=== PATIENT | male | born 1950 | race Caucasian/White ===

== ENCOUNTER 2016-10-15 16:14 | Inpatient (IN) ==
--- NOTE | 2016-10-15 16:21 | Emergency Department Note ---
Disposition Clinical Impression: Withdrawal complaint, Homicidal ideation Disposition: Admitted As Inpatient Condition: Fair Forms: ED Satisfaction Letter Time of Disposition: 17:24 Anxiety HPI - General Chief Complaint: ED Psychiatric Symptoms Stated Complaint: withdrawal Time Seen by Provider: 10/15/16 16:16 Source: patient, EMS Mode of arrival: EMS Limitations: no limitations Nursing Notes Reviewed: Yes Vital Signs Reviewed: Yes - History of Present Illness HPI Narrative: Patient sent from the [facility] for medical detox. He states he takes 25 tablets of 800 mg Neurontin daily for years. Last dose was yesterday. He takes this for anxiety and seizures. Last seizure was approximately 10 years ago. He also states he is very frustrated with life, especially because his is dying of cancer. He has experienced homicidal thoughts but not at the time of my exam. He states he is under a lot of stress and he is experiencing a lot of anxiety MD complaint: anxiety - Related Data Home Medications: Home Medications Medication Instructions Recorded Confirmed ARIPiprazole [Abilify] 5 mg PO HS 10/15/16 10/15/16 Albuterol Neb [Proventil Neb] 2.5 mg IH QID PRN 10/15/16 10/15/16 Albuterol Sulfate [Albuterol 2 puff IH QID PRN 10/15/16 10/15/16 Inhaler] Aspirin Enteric Coated [Aspirin EC] 81 mg PO DAILY 10/15/16 10/15/16 Atorvastatin [Lipitor] 40 mg PO HS 10/15/16 10/15/16 Azithromycin [Azithromycin 6-Tab 250 mg PO PER PKG DI 10/15/16 10/15/16 Pack] Baclofen [Lioresal] 5 mg PO TID PRN 10/15/16 10/15/16 Budesonide/Formoterol 160/4.5 2 puff IH BIDR 10/15/16 10/15/16 [Symbicort 160/4.5] Buprenorphine HCl/Naloxone HCl 1 each SL AD 10/15/16 10/15/16 [Suboxone 8 mg-2 mg Sl Film] Bupropion HCl [Wellbutrin Xl] 300 mg PO QAM 10/15/16 10/15/16 Clopidogrel [Plavix] 75 mg PO DAILY 10/15/16 10/15/16 Dicyclomine [Bentyl] 10 mg PO TID 10/15/16 10/15/16 Diphenoxylate/Atropine [Lomotil 2 each PO TID PRN 10/15/16 10/15/16 2.5 mg/0.025 mg] Gabapentin [Neurontin] 1,200 mg PO TID 10/15/16 10/15/16 Hydrocortisone 1% CREAM [Cortaid] 1 appl TP BID 10/15/16 10/15/16 Ibuprofen [Motrin] 600 mg PO Q8HR PRN 10/15/16 10/15/16 Nicotine Polacrilex [Nicotine Gum] 4 mg BC Q1H PRN 10/15/16 10/15/16 Ondansetron [Zofran] 8 mg PO BID PRN 10/15/16 10/15/16 Paroxetine [Paxil] 60 mg PO DAILY 10/15/16 10/15/16 Quetiapine Fumarate [SEROquel] 25 mg PO TID PRN 10/15/16 10/15/16 Quetiapine Fumarate [SEROquel] 450 mg PO HS 10/15/16 10/15/16 Saliva Substitute Combo No.3 1 spray MM TID 10/15/16 10/15/16 [Aquoral] Tiotropium [Spiriva] 18 mcg IH DAILY 10/15/16 10/15/16 Trazodone HCl 100 mg PO 10/15/16 10/15/16 cloNIDine HCl [CloNIDine HCl] 0.1 mg PO TID 10/15/16 10/15/16 hydrOXYzine pamoate [HydrOXYzine 25 mg PO QID PRN 10/15/16 10/15/16 Pamoate] Allergies/Adverse Reactions: Allergies Allergy/AdvReac Type Severity Reaction Status Date / Time diazepam [From Valium] Allergy Hives Verified 10/15/16 16:17 morphine Allergy Hives Verified 10/15/16 16:17 propoxyphene [From Darvon] Allergy Hives Verified 10/15/16 16:17 tramadol Allergy Hives Verified 10/15/16 16:17 All systems ED: reviewed and negative except as stated. Constitutional: Reports: as per HPI Eyes: Reports: as per HPI ENT ED: Reports: as per HPI Cardiovascular: Reports: as per HPI Respiratory: Reports: as per HPI Gastrointestinal: Reports: as per HPI Genitourinary: Reports: as per HPI Musculoskeletal: Reports: as per HPI Integumentary: Reports: as per HPI Neurological: Reports: as per HPI Psychiatric: Reports: anxiety, depression, homicidal thoughts Endocrine: Reports: as per HPI Hematological/Lymphatic: Reports: as per HPI Allergic/Immunologic: Reports: as per HPI Past Medical History - Past Medical History Source: patient Medical history: Reports: COPD, hepatitis - Social History Smoking Status: Current every day smoker Alcohol use: Reports: none Drug use: Reports: none Physical Exam - General Limitations: no limitations General appearance: alert - Head Head exam: atraumatic - Eye Eye exam: Present: normal appearance, PERRL - ENT ENT exam: normal exam - Neck Neck exam: Present: normal inspection, full ROM - Chest Chest inspection: Present: normal inspection, symmetric chest wall rise - Respiratory Respiratory exam: Present: other (diffuse expiratory rhonchi) - Cardiovascular Cardiovascular exam: Present: normal rhythm, tachycardia, normal heart sounds - Rectal Exam Rectal exam: Present: deferred - Extremities Exam Extremities exam: Present: normal inspection - Neurological Exam Neurological exam: Present: alert, oriented X3, CN II-XII intact - Psychiatric Psychiatric exam: Present: normal affect, normal mood, flat affect - Skin Skin exam: Present: warm, dry, erythema Course Course Narrative: [facility]. I did discuss this case with the [facility]ison Control [facility] who recommended conservative management and benzodiazepines if seizures occur. Patient does want to detox from these medications. He appears in no acute distress. I did [facility] the [facility] the [facility]. - Consultations Consultation #1: call placed to poison control center at 16:19 Vital Signs Temperature 98.0 F 10/15/16 16:17 Pulse Rate 118 10/15/16 16:17 Respiratory Rate 15 10/15/16 16:17 Blood Pressure 134/92 10/15/16 16:17 O2 Sat by Pulse Oximetry 94 10/15/16 16:17 Temperature 98.0 F 10/15/16 16:17 Pulse Rate 116 10/15/16 16:41 Respiratory Rate 15 10/15/16 16:41 Blood Pressure 127/93 10/15/16 16:41 O2 Sat by Pulse Oximetry 93 10/15/16 16:41 Oxygen Delivery Oxygen Delivery Room Air Anxiety - Medical Records Medical records reviewed: Yes I reviewed the patient's medical records. CBC, BMP, UA from [place] dated today - Lab Data Lab Results 10/15/16 Range/Units 16:30 Urine Opiates Screen Negative (Huqvgk=371) ng/mL Ur Barbiturates Screen Negative (Grvofk=683) ng/mL Ur Phencyclidine Scrn Negative (Cutoff=25) ng/mL Ur Amphetamines Screen Negative (Sgnlvp=2210) ng/mL U Benzodiazepines Scrn Negative (Frmrjf=868) ng/mL Urine Cocaine Screen Negative (Cutoff= 300) ng/mL U Marijuana (THC) Screen Negative (Cutoff = 50) ng/mL - EKG Data EKG attestation: Yes I reviewed and interpreted this EKG. EKG results narrative: Sinus tach 112 bpm MN interval 134 QRS 109 QT/QTC 309/375. ST segment depression in the inferior and lateral leads
[2016-10-15 16:49] LABS: Amphetamine Screen,Urine Negative ng/mL (Cutoff=1000); Barbiturate Screen,Urine Negative ng/mL (Cutoff=200); Benzodiazepines Screen,Urine Negative ng/mL (Cutoff=200); Cannabinoid Screen,Urine Negative ng/mL (Cutoff = 50); Cocaine Screen,Urine Negative ng/mL (Cutoff= 300); Opiate Screen,Urine Negative ng/mL (Cutoff=300); Phencyclidine Screen,Urine Negative ng/mL (Cutoff=25)
[2016-10-15] MEDS ORDERED: *HR* LORazepam 2 MG/ML VIAL IVP ONE ×2 (16:49→18:48)
[2016-10-15 18:14] LABS: Magnesium 2.3 mg/dL (1.6-2.6)
[2016-10-15 18:17] LABS: Ethanol < 10 mg/dL (0-10); Salicylate < 5.0 mg/dL (15-30)
[2016-10-15] MEDS ORDERED: Baclofen 10 MG TABLET PO PRN (19:33)
[2016-10-15] MEDS ORDERED: NON-FORMULARY MEDICATION 1 EACH EACH (Ondansetron [Zofran] 8 MG) PO PRN (19:33)
[2016-10-15] MEDS ORDERED: Albuterol 2.5 MG/3 ML NEBULIZER IH PRN (19:33)
[2016-10-15] MEDS ORDERED: hydrOXYzine pamoate 25 MG CAPSULE PO PRN (19:33)
[2016-10-15] MEDS ORDERED: Diphenoxylate/Atropine 1 TAB TABLET PO PRN (19:33)
[2016-10-15] MEDS ORDERED: Naloxone 0.4 MG/ML INJ IVP PRN (19:46)
[2016-10-15] MEDS ORDERED: Ondansetron ODT 4 MG TAB.RAPDIS SL PRN (19:46)
[2016-10-15] MEDS: Budesonide/Formoterol 160/4.5 MDI IH SCH (21:35)
[2016-10-15] MEDS ORDERED: Haloperidol Lactate 5 MG/ML VIAL IVP PRN (22:23)
[2016-10-15] MEDS: Gabapentin 400 MG CAPSULE PO SCH ×2 (22:24→23:07)
[2016-10-15] MEDS: traZODone 50 MG TABLET PO SCH (23:07)
[2016-10-15] MEDS: ARIPiprazole 5 MG TABLET PO SCH (23:07)
[2016-10-15] MEDS: cloNIDine HCl 0.1 MG TABLET PO SCH (23:07)
[2016-10-15] MEDS: Saliva Stimulant 100ml BOTTLE MM SCH (23:42)
[2016-10-15] MEDS: (Buprenorphine Hcl/Naloxone Hcl [Suboxone 8 Mg-2 Mg S) SL SCH (23:42)
--- NOTE | 2016-10-16 00:56 | Internal Med History&Physical ---
Date of Encounter: 10/15/16 Time of Encounter: 21:00 Assessment and Plan (1) Medication withdrawal Current visit: Yes Status: Acute patient reportedly was consuming about 20,000mg daily of gabapentin and [facility], he was also found to have agitated with explosive episodes and homicidal, sanya delgado was contacted bythe ER who recommended tapering him off gabapentin, we will get sitter at bedside for safety and continue to use Haldol and other agents as necessary to calm him, Qualifiers: Substance type: other psychoactive substance Qualified Code(s): F19.939 - Other psychoactive substance use, unspecified with withdrawal, unspecified (2) Homicidal ideation Current visit: Yes Status: Acute patient was reportedly homicidal with no particular person in mind, we will get psychiatry to see him, he has been pink slipped and therefore cannot leave AMA (3) COPD (chronic obstructive pulmonary disease) Current visit: Yes Status: Chronic will do nebs PRN Qualifiers: COPD type: chronic bronchitis Chronic bronchitis type: simple Qualified Code(s): J41.0 - Simple chronic bronchitis (4) PTSD (post-traumatic stress disorder) Current visit: Yes Status: Chronic will continue home medications (5) Seizure disorder Current visit: Yes Status: Chronic will continue home medications with aspiration, seizure and fall precautions Internal Medicine - H&P: HPI Chief complaint: Agitation Admitted From: Hospital to Hospital Transfer Plans for Post Hospital Care: Home History of present illness: Mr. Reich is a 65 year old male with a history of PTSD/anxiety disorder was sent from the [facility] urgent care for agitation. He had presented to the [facility] on 10/15/16 asking to be detoxed from gabapentin. Per reports he had been consuming this medication estimated use of about ?20,000mg daily that he gets off the streets for the past 5-6 years. His reportedly has terminal cancer which has placed him under an enormous amount of stress worsening his situation. He admitted to homicidal ideation but denied suicidal ideation. He has a prior suicide attempt with methadone in 05/2015. His psychiatrist from [place] has also been concerned greatly about his safety. In the ER he was agitated and also had tachycardia and required Ativan to calm him down. No reported fever, chills, nausea or vomiting but his appetite has been poor and admitted to being depressed. Past Med Surg Social Fam HX - Past Medical History Source: old records reviewed Medical history: COPD, hepatitis, seizures, other (elevated PSA, erectile dysfunction, abdomonal aortic aneurysm, opioid dependence, hard of hearing, PE, Hepatitis C) Psychiatric history: anxiety, PTSD - Past Surgical History Surgical History: other (unable to obtain due to mental status) - Social History Smoking Status: Current every day smoker Smokeless Tobacco Status: No Alcohol use: none Drug use: none - Family History Mother Living Status: Cause of : suicide Father Living Status: Cause of : leukemia Internal Medicine - H&P: Meds ARIPiprazole [Abilify] 5 mg PO HS 10/15/16 [History] Albuterol Neb [Proventil Neb] 2.5 mg IH QID PRN 10/15/16 [History] Albuterol Sulfate [Albuterol Inhaler] 2 puff IH QID PRN 10/15/16 [History] Aspirin Enteric Coated [Aspirin EC] 81 mg PO DAILY 10/15/16 [History] Atorvastatin [Lipitor] 40 mg PO HS 10/15/16 [History] Azithromycin [Azithromycin 6-Tab Pack] 250 mg PO PER PKG DI 10/15/16 [History] Baclofen [Lioresal] 5 mg PO TID PRN 10/15/16 [History] Budesonide/Formoterol 160/4.5 [Symbicort 160/4.5] 2 puff IH BIDR 10/15/16 [ History] Buprenorphine HCl/Naloxone HCl [Suboxone 8 mg-2 mg Sl Film] 1 each SL AD [History] Bupropion HCl [Wellbutrin Xl] 300 mg PO QAM 10/15/16 [History] Clopidogrel [Plavix] 75 mg PO DAILY 10/15/16 [History] Dicyclomine [Bentyl] 10 mg PO TID 10/15/16 [History] Diphenoxylate/Atropine [Lomotil 2.5 mg/0.025 mg] 2 each PO TID PRN 10/15/16 [ History] Gabapentin [Neurontin] 1,200 mg PO TID 10/15/16 [History] Hydrocortisone 1% CREAM [Cortaid] 1 appl TP BID 10/15/16 [History] Ibuprofen [Motrin] 600 mg PO Q8HR PRN 10/15/16 [History] Nicotine Polacrilex [Nicotine Gum] 4 mg BC Q1H PRN 10/15/16 [History] Ondansetron [Zofran] 8 mg PO BID PRN 10/15/16 [History] Paroxetine [Paxil] 60 mg PO DAILY 10/15/16 [History] Quetiapine Fumarate [SEROquel] 25 mg PO TID PRN 10/15/16 [History] Quetiapine Fumarate [SEROquel] 450 mg PO HS 10/15/16 [History] Saliva Substitute Combo No.3 [Aquoral] 1 spray MM TID 10/15/16 [History] Tiotropium [Spiriva] 18 mcg IH DAILY 10/15/16 [History] Trazodone HCl 100 mg PO HS 10/15/16 [History] cloNIDine HCl [CloNIDine HCl] 0.1 mg PO TID 10/15/16 [History] hydrOXYzine pamoate [HydrOXYzine Pamoate] 25 mg PO QID PRN 10/15/16 [History] Allergies diazepam [From Valium] Allergy (Verified 10/15/16 16:17) Hives morphine Allergy (Verified 10/15/16 16:17) Hives propoxyphene [From Darvon] Allergy (Verified 10/15/16 16:17) Hives tramadol Allergy (Verified 10/15/16 16:17) Hives All Systems PM: A 10-system review of systems was performed and is negative for pertinent findings except as documented above in the HPI. - Constitutional Vitals: Temp Pulse Resp BP Pulse Ox 98.1 F 98 18 122/77 96 10/15/16 18:11 10/15/16 22:50 10/15/16 22:50 10/15/16 22:50 10/15/16 22:50 PHYSICAL EXAMINATION: GENERAL: Adult male, lying in bed, lethargic HEENT: NC/AT, EOMI, PERRLA, anicteric sclera, normal conjunctiva, supple, RESP: clear lung mcdaniel with no wheeze or crackles noted CARDIO: Normal hearts sounds; S1 and 2, RRR with no murmurs, no JVD, no ankle edema GI: Soft, full, no tenderness, no organomegaly felt, normal bowel sounds heard MUSCULOSKELETAL: grossly normal movements bilaterally, no deformities noted, no calf tenderness NEUROLOGIC: CN 2-12 intact grossly. No motor/sensory deficit appreciated, PSYCHIATRY: agitated earlier but currently drowsy after being medicated SKIN: no skin rash noted Internal Med - H&P Results - Labs Labs: labs reviewed his CBC, utox where normal, UA was also normal
[2016-10-16] MEDS ORDERED: Albuterol 2.5 MG/3 ML NEBULIZER IH PRN (02:02)
[2016-10-16] MEDS ORDERED: *HR* OxyCODONE Immed Rel 5 MG TABLET PO STA (03:06)
[2016-10-16] MEDS ORDERED: *HR* OxyCODONE Immed Rel 5 MG TABLET PO ONE (05:50)
[2016-10-16 05:53] LABS: Basophils # 0.1 K/mcL (0.0-0.2); Eosinophils # 0.5 K/mcL (0.0-0.6); Eosinophils % 5.5 %; Hemoglobin 14.5 g/dL (12.9-16.9); Immature Granulocytes % 0.5 % (0-4); Lymphocytes # 2.6 K/mcL (0.6-4.6); Mean Corpuscular HGB Conc 32.2 g/dL (31.6-35.5); Mean Corpuscular Hemoglobin 30.5 pg (28.0-33.3); Mean Corpuscular Volume 94.7 fL (83.0-100.0); Mean Platelet Volume 9.4 fL (9.4-12.4); Monocytes # 0.8 K/mcL (0.0-1.3); Monocytes % 8.7 %; Neutrophils # 5.1 K/mcL (1.6-8.9); Platelet Count 229 K/mcL (140-400); Red Blood Count 4.75 M/mcL (4.19-5.50); Red Cell Distribution Width 14.2 % (11.5-14.5); Segmented Neutrophils % 56.3 %
[2016-10-16] MEDS: *HR* Heparin 5,000 UNIT/ML VIAL SQ SCH ×3 (06:00→22:48)
[2016-10-16 06:04] LABS: Phosphorous 3.2 mg/dL (2.3-4.7)
[2016-10-16 06:09] LABS: Alanine Aminotransferase 10 Units/L (0-55); Albumin 3.1 g/dL (3.5-5.0); Alkaline Phosphatase 59 Units/L (38-126); Aspartate Amino Transferase 13 Units/L (5-34); BUN/Creatinine Ratio 28 (6-26); Bilirubin,Total 0.1 mg/dL (0.2-1.2); Blood Urea Nitrogen 24 mg/dL (8-26); Calcium 9.1 mg/dL (8.6-10.8); Carbon Dioxide 22 mEq/L (19-29); Chloride 110 mEq/L (98-109); Globulin 3.1 g/dL (2.4-3.5); Glucose 111 mg/dL (70-99); Osmolality,Calculated 293 (280-300); Potassium 4.5 mEq/L (3.5-4.5); Sodium 139 mEq/L (136-145); Total Protein 6.2 g/dL (6.0-8.3); eGFR For African Americans > 60 (> 60); eGFR For Non-African Americans > 60 (> 60)
[2016-10-16 06:28] LABS: Thyroid Stimulating Hormone 0.608 mcIU/mL (0.350-4.840)
[2016-10-16] MEDS ORDERED: Ziprasidone injection 20 MG/ML VIAL IM ONE (08:03)
[2016-10-16] MEDS: Aspirin Enteric Coated 81 MG Tablet PO SCH (08:19)
[2016-10-16] MEDS: Gabapentin 400 MG CAPSULE PO SCH ×3 (08:19→22:43)
[2016-10-16] MEDS: Thiamine (B-1) 100 MG TABLET PO SCH (08:19)
[2016-10-16] MEDS: cloNIDine HCl 0.1 MG TABLET PO SCH ×3 (08:20→22:45)
[2016-10-16] MEDS: Saliva Stimulant 100ml BOTTLE MM SCH ×3 (08:20→22:39)
[2016-10-16] MEDS: Folic Acid 1 MG TABLET PO SCH (08:20)
[2016-10-16] MEDS: Nicotine 21 MG PATCH.TD24 TD SCH (08:20)
[2016-10-16] MEDS: Vitamin B Complex/Vit C/Vit E 1 EACH TABLET PO SCH (08:20)
[2016-10-16] MEDS: BuPROPion XL (24 HR) 150 MG TABLET PO SCH (08:26)
[2016-10-16] MEDS: Budesonide/Formoterol 160/4.5 MDI IH SCH ×2 (10:42→22:33)
[2016-10-16] MEDS: Tiotropium 18 MCG inhalation IH SCH (10:42)
[2016-10-16] MEDS: *HR* LORazepam 1 MG TABLET PO PRN ×3 (10:52→22:46)
[2016-10-16] MEDS ORDERED: Haloperidol Lactate 5 MG/ML VIAL IM PRN ×2 (13:52→13:53)
--- NOTE | 2016-10-16 14:21 | Consult Note ---
Date of Encounter: 10/16/16 Time of Encounter: 14:00 Assessment & Recommendation (1) Medication withdrawal Current visit: Yes Status: Acute Assessment & Recommendation: 1. Continue medical stabilization and symptomatic treatments of gabapentin withdrawal 2. There is no acute psychiatric condition that require inpatient hospitalization in psychiatry at this time 3. Patient needs to follow-up as outpatient with his psychiatrist. Thank you for consultation. Qualifiers: Substance type: other psychoactive substance Qualified Code(s): F19.939 - Other psychoactive substance use, unspecified with withdrawal, unspecified History of Present Illness Patient: new to practice Requesting Physician: Rajinder Perry MD Reason for consult: Agitation and homicidal ideation History of present illness: Mr. Reich is a 65 year old male admitted to the hospital for treatment off gabapentin detox. Per records patient is a and receives psychiatric treatments at the [facility] for bipolar and PTSD. Patient has been abusing gabapentin and taken large amounts on a daily basis for several years and he became interested in detox, the [facility] urgent [facility] Sent him to the hospital for treatment. Psychiatric consultation was requested to evaluate agitation and homicidal ideation. On interview patient was hard of hearing and sedated, he was able to answer a few questions regarding his treatment at the [facility] and he recognizes some of his medication. He denied any suicidal or homicidal ideation and apparently he was agitated when he made those statements. Patient denied any recent psychiatric hospitalization and he is followed up as outpatient. CC: Rajinder Perry MD Past Med Surg Social Fam HX - Past Medical History Medical history: COPD, hepatitis, seizures, other (elevated PSA, erectile dysfunction, abdomonal aortic aneurysm, opioid dependence, hard of hearing, PE, Hepatitis C) - Past Surgical History Surgical History: other (unable to obtain due to mental status) - Social History Smoking Status: Current every day smoker Smokeless Tobacco Status: No Alcohol use: none Drug use: none - Family History Mother Living Status: Cause of : suicide Father Living Status: Cause of : leukemia Medications & Allergies ARIPiprazole [Abilify] 5 mg PO HS 10/15/16 [History] Albuterol Neb [Proventil Neb] 2.5 mg IH QID PRN 10/15/16 [History] Albuterol Sulfate [Albuterol Inhaler] 2 puff IH QID PRN 10/15/16 [History] Aspirin Enteric Coated [Aspirin EC] 81 mg PO DAILY 10/15/16 [History] Atorvastatin [Lipitor] 40 mg PO HS 10/15/16 [History] Azithromycin [Azithromycin 6-Tab Pack] 250 mg PO PER PKG DI 10/15/16 [History] Baclofen [Lioresal] 5 mg PO TID PRN 10/15/16 [History] Budesonide/Formoterol 160/4.5 [Symbicort 160/4.5] 2 puff IH BIDR 10/15/16 [ History] Buprenorphine HCl/Naloxone HCl [Suboxone 8 mg-2 mg Sl Film] 1 each SL AD [History] Bupropion HCl [Wellbutrin Xl] 300 mg PO QAM 10/15/16 [History] Clopidogrel [Plavix] 75 mg PO DAILY 10/15/16 [History] Dicyclomine [Bentyl] 10 mg PO TID 10/15/16 [History] Diphenoxylate/Atropine [Lomotil 2.5 mg/0.025 mg] 2 each PO TID PRN 10/15/16 [ History] Gabapentin [Neurontin] 1,200 mg PO TID 10/15/16 [History] Hydrocortisone 1% CREAM [Cortaid] 1 appl TP BID 10/15/16 [History] Ibuprofen [Motrin] 600 mg PO Q8HR PRN 10/15/16 [History] Nicotine Polacrilex [Nicotine Gum] 4 mg BC Q1H PRN 10/15/16 [History] Ondansetron [Zofran] 8 mg PO BID PRN 10/15/16 [History] Paroxetine [Paxil] 60 mg PO DAILY 10/15/16 [History] Quetiapine Fumarate [SEROquel] 25 mg PO TID PRN 10/15/16 [History] Quetiapine Fumarate [SEROquel] 450 mg PO HS 10/15/16 [History] Saliva Substitute Combo No.3 [Aquoral] 1 spray MM TID 10/15/16 [History] Tiotropium [Spiriva] 18 mcg IH DAILY 10/15/16 [History] Trazodone HCl 100 mg PO HS 10/15/16 [History] cloNIDine HCl [CloNIDine HCl] 0.1 mg PO TID 10/15/16 [History] hydrOXYzine pamoate [HydrOXYzine Pamoate] 25 mg PO QID PRN 10/15/16 [History] Allergies diazepam [From Valium] Allergy (Verified 10/15/16 16:17) Hives morphine Allergy (Verified 10/15/16 16:17) Hives propoxyphene [From Darvon] Allergy (Verified 10/15/16 16:17) Hives tramadol Allergy (Verified 10/15/16 16:17) Hives Mental Status Exam Patient orientation: Yes Person, Yes Time, Yes Place Level of alertness: Alert, Sedated Patient appearance: Appropriate, Disheveled Behavior: calm, cooperative, guarded Psychomotor activity: Slowed Eye contact: Fleeting Contact Mood description: Euthymic/stable Affect description: congruent with mood, full range Speech pattern: Normal rate, Normal rhythm, Normal tone Speech volume: Normal Thought process: Linear, Goal Oriented Thought content: No Suicidal ideation, No Homicidal ideation, No Overt delusions Perceptual disturbances: No Auditory hallucinations, No Visual hallucinations Attention span: Capable of Focused Attention Memory description: Grossly Intact Patient reliability: Reliable Historian Intelligence estimate: Average Judgment: Limited Insight: Partial Results - Vital Signs Vital signs: Temp Pulse Resp BP Pulse Ox 98.1 F 98 18 122/77 96 10/15/16 18:11 10/15/16 22:50 10/16/16 10:42 10/15/16 22:50 10/16/16 10:42 - Labs Labs: Laboratory Last Values WBC 9.1 K/mcL (4.3-11.1) 10/16/16 05:31 RBC 4.75 M/mcL (4.19-5.50) 10/16/16 05:31 Hgb 14.5 g/dL (12.9-16.9) 10/16/16 05:31 Hct 45.0 % (37.5-50.1) 10/16/16 05:31 MCV 94.7 fL (83.0-100.0) 10/16/16 05:31 MCH 30.5 pg (28.0-33.3) 10/16/16 05:31 MCHC 32.2 g/dL (31.6-35.5) 10/16/16 05:31 RDW 14.2 % (11.5-14.5) 10/16/16 05:31 Plt Count 229 K/mcL (140-400) 10/16/16 05:31 MPV 9.4 fL (9.4-12.4) 10/16/16 05:31 Immature Gran % 0.5 % (0-4) 10/16/16 05:31 Seg Neutrophils % 56.3 % 10/16/16 05:31 Lymphocytes % 28.0 % 10/16/16 05:31 Monocytes % 8.7 % 10/16/16 05:31 Eosinophils % 5.5 % 10/16/16 05:31 Basophils % 1.0 % 10/16/16 05:31 Neutrophils # 5.1 K/mcL (1.6-8.9) 10/16/16 05:31 Lymphocytes # 2.6 K/mcL (0.6-4.6) 10/16/16 05:31 Monocytes # 0.8 K/mcL (0.0-1.3) 10/16/16 05:31 Eosinophils # 0.5 K/mcL (0.0-0.6) 10/16/16 05:31 Basophils # 0.1 K/mcL (0.0-0.2) 10/16/16 05:31 Sodium 139 mEq/L (136-145) 10/16/16 05:31 Potassium 4.5 mEq/L (3.5-4.5) 10/16/16 05:31 Chloride 110 mEq/L (98-109) H 10/16/16 05:31 Carbon Dioxide 22 mEq/L (19-29) 10/16/16 05:31 BUN 24 mg/dL (8-26) 10/16/16 05:31 Creatinine 0.86 mg/dL (0.72-1.25) 10/16/16 05:31 Est GFR ( Amer) > 60 (> 60) 10/16/16 05:31 Est GFR (Non-Af Amer) > 60 (> 60) 10/16/16 05:31 BUN/Creatinine Ratio 28 (6-26) H 10/16/16 05:31 Glucose 111 mg/dL (70-99) H 10/16/16 05:31 Calculated Osmolality 293 (280-300) 10/16/16 05:31 Calcium 9.1 mg/dL (8.6-10.8) 10/16/16 05:31 Phosphorus 3.2 mg/dL (2.3-4.7) 10/16/16 05:31 Magnesium 2.0 mg/dL (1.6-2.6) 10/16/16 05:31 Total Bilirubin 0.1 mg/dL (0.2-1.2) L 10/16/16 05:31 AST 13 Units/L (5-34) 10/16/16 05:31 ALT 10 Units/L (0-55) 10/16/16 05:31 Alkaline Phosphatase 59 Units/L (38-126) 10/16/16 05:31 Serum Total Protein 6.2 g/dL (6.0-8.3) 10/16/16 05:31 Albumin 3.1 g/dL (3.5-5.0) L 10/16/16 05:31 Globulin 3.1 g/dL (2.4-3.5) 10/16/16 05:31 Albumin/Globulin Ratio 1.0 (1.1-2.2) L 10/16/16 05:31 TSH 0.608 mcIU/mL (0.350-4.840) 10/16/16 05:31 Salicylates < 5.0 mg/dL (15-30) L 10/15/16 16:55 Urine Opiates Screen Negative ng/mL (Tzmtsi=501) 10/15/16 16:30 Acetaminophen 1.0 mcg/mL (10-30) L 10/15/16 16:55 Ur Barbiturates Screen Negative ng/mL (Ywcwii=955) 10/15/16 16:30 Ur Phencyclidine Scrn Negative ng/mL (Cutoff=25) 10/15/16 16:30 Ur Amphetamines Screen Negative ng/mL (Oehzby=1701) 10/15/16 16:30 U Benzodiazepines Scrn Negative ng/mL (Nmipgk=354) 10/15/16 16:30 Urine Cocaine Screen Negative ng/mL (Cutoff= 300) 10/15/16 16:30 U Marijuana (THC) Screen Negative ng/mL (Cutoff = 50) 10/15/16 16:30 Ethyl Alcohol < 10 mg/dL (0-10) 10/15/16 16:55 Consult Discharge Plan - Plan [facility]: [facility] [Primary Care Provider] -
--- NOTE | 2016-10-16 14:40 | Internal Med Progress Note ---
Date of Encounter: 10/16/16 Time of Encounter: 11:30 - Assessment and plan (1) Medication withdrawal Current Visit: Yes Status: Acute Assessment and plan: Patient currently being treated for gabapentin withdrawal. Has been intermittently agitated and requiring antipsychotic medications. Awaiting evaluation by psychiatry Qualifiers: Substance type: other psychoactive substance Qualified Code(s): F19.939 - Other psychoactive substance use, unspecified with withdrawal, unspecified (2) Homicidal ideation Current Visit: Yes Status: Ruled-out (3) COPD (chronic obstructive pulmonary disease) Current Visit: Yes Status: Chronic Assessment and plan: Not in acute exacerbation. Continue bronchodilator nebs as needed Qualifiers: COPD type: chronic bronchitis Chronic bronchitis type: simple Qualified Code(s): J41.0 - Simple chronic bronchitis (4) PTSD (post-traumatic stress disorder) Current Visit: Yes Status: Chronic Assessment and plan: Continue home medications (5) Seizure disorder Current Visit: Yes Status: Chronic Assessment and plan: Seizure precautions and continue home medications - Subjective Interval history: Patient was severely agitated this morning. Required intramuscular injection of ziprasidone help calm him down. He is awaiting psychiatric evaluation. Denies any homicidal or suicidal ideation at this time. Complains of back pain. - Constitutional Vitals: Temp Pulse Resp BP Pulse Ox 98.1 F 98 18 122/77 96 10/15/16 18:11 10/15/16 22:50 10/16/16 10:42 10/15/16 22:50 10/16/16 10:42 General appearance: Present: cooperative, A&O X 3, answers questions appropriately - Respiratory Respiratory exam: Present: CTAB. Absent: accessory muscle use, rales, rhonchi, wheezes - Cardiovascular Cardiovascular exam: Present: RRR, +S1, +S2. Absent: diastolic murmur, gallop, rubs, systolic murmur - GI/Abdominal GI/Abdominal exam: Present: normal bowel sounds, soft, no peritoneal signs. Absent: distended, tenderness - Neurological Exam Neurological exam: Present: alert, oriented X3, no focal deficits. Absent: facial droop, speech deficit - Psychiatric Psychiatric exam: Present: anxious Internal Medicine: Result - Labs CBC & Chem 7: 10/16/16 05:31 10/16/16 05:31 Labs: Short CBC 10/16/16 Range/Units 05:31 WBC 9.1 (4.3-11.1) K/mcL Hgb 14.5 (12.9-16.9) g/dL Hct 45.0 (37.5-50.1) % Plt Count 229 (140-400) K/mcL Neutrophils # 5.1 (1.6-8.9) K/mcL BMP 10/16/16 05:31 Sodium 139 Potassium 4.5 Chloride 110 H Carbon Dioxide 22 BUN 24 Creatinine 0.86 Glucose 111 H Calcium 9.1 Liver Function 10/16/16 Range/Units 05:31 Total Bilirubin 0.1 L (0.2-1.2) mg/dL AST 13 (5-34) Units/L ALT 10 (0-55) Units/L Alkaline Phosphatase 59 (38-126) Units/L Albumin 3.1 L (3.5-5.0) g/dL Consult Discharge Plan - Plan Referrals: [facility] [Primary Care Provider] - - Attending Attestation This document has been at least partially created by [employer] recognition technology by Dr. Perry. Errors in grammar, wording or other phrases may exist. If errors are found after the documentation is signed, they will be addressed individually in the addendum section of this document when appropriate.
[2016-10-16] MEDS ORDERED: traMADol 50 MG TABLET PO PRN (15:42)
[2016-10-16] MEDS: *HR* OxyCODONE Immed Rel 5 MG TABLET PO PRN ×2 (16:06→22:45)
--- NOTE | 2016-10-16 16:34 | Electrocardiograph Report ---
[address] [address] Test Date: 2016-10-15 Pat Name: Mckay Reich Department: 104 Room: 3B Gender: M Medical Billing Coordinator: PAVEL : 1950 Requested By: Hardeep Jenkins Order Number: [id number] Reading MD: Jenni Hector Measurements Intervals [place] Rate: 112 P: 24 IN: 134 QRS: 68 QRSD: 109 T: 51 QT: 309 QTc: 375 Interpretive Statements SINUS TACHYCARDIA MODERATE ST DEPRESSION Electronically Signed On 10-16-2016 16:33:14 EDT by Jenni Hector
--- NOTE | 2016-10-16 17:17 | Discharge Summary ---
Date of Encounter: 10/17/16 Time of Encounter: 08:50 - Discharge Diagnosis (1) Medication withdrawal Priority: Primary Status: Acute Qualifiers: Substance type: other psychoactive substance Qualified Code(s): F19.939 - Other psychoactive substance use, unspecified with withdrawal, unspecified (2) Homicidal ideation Priority: Secondary Status: Ruled-out (3) COPD (chronic obstructive pulmonary disease) Priority: Secondary Status: Chronic Qualifiers: COPD type: chronic bronchitis Chronic bronchitis type: simple Qualified Code(s): J41.0 - Simple chronic bronchitis (4) PTSD (post-traumatic stress disorder) Priority: Secondary Status: Chronic (5) Seizure disorder Priority: Secondary Status: Chronic - Discharge Medications Home Medications: ARIPiprazole [Abilify] 5 mg PO HS 10/15/16 [History] Albuterol Neb [Proventil Neb] 2.5 mg IH QID PRN 10/15/16 [History] Albuterol Sulfate [Albuterol Inhaler] 2 puff IH QID PRN 10/15/16 [History] Aspirin Enteric Coated [Aspirin EC] 81 mg PO DAILY 10/15/16 [History] Atorvastatin [Lipitor] 40 mg PO HS 10/15/16 [History] Azithromycin [Azithromycin 6-Tab Pack] 250 mg PO PER PKG DI 10/15/16 [History] Baclofen [Lioresal] 5 mg PO TID PRN 10/15/16 [History] Budesonide/Formoterol 160/4.5 [Symbicort 160/4.5] 2 puff IH BIDR 10/15/16 [ History] Buprenorphine HCl/Naloxone HCl [Suboxone 8 mg-2 mg Sl Film] 1 each SL AD [History] Bupropion HCl [Wellbutrin Xl] 300 mg PO QAM 10/15/16 [History] Clopidogrel [Plavix] 75 mg PO DAILY 10/15/16 [History] Dicyclomine [Bentyl] 10 mg PO TID 10/15/16 [History] Diphenoxylate/Atropine [Lomotil 2.5 mg/0.025 mg] 2 each PO TID PRN 10/15/16 [ History] Gabapentin [Neurontin] 1,200 mg PO TID 10/15/16 [History] Hydrocortisone 1% CREAM [Cortaid] 1 appl TP BID 10/15/16 [History] Ibuprofen [Motrin] 600 mg PO Q8HR PRN 10/15/16 [History] Nicotine Polacrilex [Nicotine Gum] 4 mg BC Q1H PRN 10/15/16 [History] Ondansetron [Zofran] 8 mg PO BID PRN 10/15/16 [History] Paroxetine [Paxil] 60 mg PO DAILY 10/15/16 [History] Quetiapine Fumarate [Seroquel] 25 mg PO TID PRN 10/15/16 [History] Quetiapine Fumarate [Seroquel] 450 mg PO HS 10/15/16 [History] Saliva Substitute Combo No.3 [Aquoral] 1 spray MM TID 10/15/16 [History] Tiotropium [Spiriva] 18 mcg IH DAILY 10/15/16 [History] Trazodone HCl 100 mg PO HS 10/15/16 [History] cloNIDine HCl [CloNIDine HCl] 0.1 mg PO TID 10/15/16 [History] hydrOXYzine pamoate [HydrOXYzine Pamoate] 25 mg PO QID PRN 10/15/16 [History] Allergies/Adverse Reactions: Allergies diazepam [From Valium] Allergy (Verified 10/15/16 16:17) Hives morphine Allergy (Verified 10/15/16 16:17) Hives propoxyphene [From Darvon] Allergy (Verified 10/15/16 16:17) Hives tramadol Allergy (Verified 10/15/16 16:17) Hives Date of admission: 10/15/16 21:31 [facility] Consults: 10/15/16 19:39 Consult to Psychiatry [CONS] Routine Consulting Provider: Psychiatry Catrina Reason for Consult: Patient comes from [place] with abuse of Gabapentin (20,000 mg /daily) and is in withdrawal with agitation and homicidal ideations. Call Completed: Yes 10/15/16 19:47 Consult to Foley Artist [CONS] Routine Reason for SW Consult: Patient currently abuses Gabapentin, taking 20,000 mg daily. He reports he buys it on the street. Discharging clinician: Rajinder Perry Anticipated date of discharge: 10/17/16 - Patient Status Disposition: Home, Self-Care Condition: Good Functional capacity at discharge: independent ambulation Overall status at discharge: patient is progressing back to baseline - Discharge Instructions Follow Up With: [facility] [Primary Care Provider[facility] - (Follow-up in one week) - Diet and Activity Activity: increase activity as tolerated, resume usual activities as tolerated Diet: low fat, low cholesterol, low salt diet Hospital course: Mr. Reich is a 65 year old male patient with a history of posttraumatic stress disorder who was sent over from the for evaluation by psychiatry regarding concerns for safety and home to self and others. On presentation to the ER here , he was very agitated and required multiple medications to calm him down. He was pink slipped and monitored in the observation unit. He had been taking high doses of gabapentin at home and [facility]. He was monitored for withdrawal and treated with antipsychotics and benzodiazepines to help with his withdrawal. He was then evaluated by psychiatry and cleared for discharge from their standpoint. Does not really he does not harbor any thoughts of self-harm or harm to others. He is depressed and frustrated as his is dealing with terminal cancer. He is advised to follow-up with his psychiatrist will be and to seek further care at the [facility]. Medically, he is stable to be discharged home at this time. - Time Spent with Patient Total time spent providing and/or coordinating discharge services: Less than 30 minutes (20 min) - Constitutional Vitals: Temp Pulse Resp BP Pulse Ox 97.6 F 105 20 120/79 94 10/16/16 15:28 10/16/16 15:28 10/16/16 15:28 10/16/16 15:28 10/16/16 15:28 General appearance: Present: cooperative, A&O X 3, answers questions appropriately - Neck Neck exam general surgery: Present: supple, trachea midline. Absent: lymphadenopathy - Cardiovascular Cardiovascular exam: Present: RRR, +S1, +S2. Absent: diastolic murmur, gallop, rubs, systolic murmur - GI/Abdominal GI/Abdominal exam: Present: normal bowel sounds, soft, no peritoneal signs. Absent: distended, tenderness - Extremities Exam Extremities exam: Present: warm, radial pulses palpable and symetrical. Absent : calf tenderness, cyanotic, pedal edema - Attending Attestation This document has been at least partially created by [employer] recognition technology by Dr. Perry. Errors in grammar, wording or other phrases may exist. If errors are found after the documentation is signed, they will be addressed individually in the addendum section of this document when appropriate.
--- NOTE | 2016-10-16 17:18 | Physician Discharge Referral ---
- Diagnosis (1) Medication withdrawal Priority: Primary Status: Acute (2) Homicidal ideation Priority: Secondary Status: Ruled-out (3) COPD (chronic obstructive pulmonary disease) Priority: Secondary Status: Chronic (4) PTSD (post-traumatic stress disorder) Priority: Secondary Status: Chronic (5) Seizure disorder Priority: Secondary Status: Chronic Prognosis: Fair Aware of Diagnosis: Patient Aware of Prognosis: Patient - Transfer Medications Home Medications: ARIPiprazole [Abilify] 5 mg PO HS 10/15/16 [History] Albuterol Neb [Proventil Neb] 2.5 mg IH QID PRN 10/15/16 [History] Albuterol Sulfate [Albuterol Inhaler] 2 puff IH QID PRN 10/15/16 [History] Aspirin Enteric Coated [Aspirin EC] 81 mg PO DAILY 10/15/16 [History] Atorvastatin [Lipitor] 40 mg PO HS 10/15/16 [History] Azithromycin [Azithromycin 6-Tab Pack] 250 mg PO PER PKG DI 10/15/16 [History] Baclofen [Lioresal] 5 mg PO TID PRN 10/15/16 [History] Budesonide/Formoterol 160/4.5 [Symbicort 160/4.5] 2 puff IH BIDR 10/15/16 [ History] Buprenorphine HCl/Naloxone HCl [Suboxone 8 mg-2 mg Sl Film] 1 each SL AD [History] Bupropion HCl [Wellbutrin Xl] 300 mg PO QAM 10/15/16 [History] Clopidogrel [Plavix] 75 mg PO DAILY 10/15/16 [History] Dicyclomine [Bentyl] 10 mg PO TID 10/15/16 [History] Diphenoxylate/Atropine [Lomotil 2.5 mg/0.025 mg] 2 each PO TID PRN 10/15/16 [ History] Gabapentin [Neurontin] 1,200 mg PO TID 10/15/16 [History] Hydrocortisone 1% CREAM [Cortaid] 1 appl TP BID 10/15/16 [History] Ibuprofen [Motrin] 600 mg PO Q8HR PRN 10/15/16 [History] Nicotine Polacrilex [Nicotine Gum] 4 mg BC Q1H PRN 10/15/16 [History] Ondansetron [Zofran] 8 mg PO BID PRN 10/15/16 [History] Paroxetine [Paxil] 60 mg PO DAILY 10/15/16 [History] Quetiapine Fumarate [SEROquel] 25 mg PO TID PRN 10/15/16 [History] Quetiapine Fumarate [SEROquel] 450 mg PO HS 10/15/16 [History] Saliva Substitute Combo No.3 [Aquoral] 1 spray MM TID 10/15/16 [History] Tiotropium [Spiriva] 18 mcg IH DAILY 10/15/16 [History] Trazodone HCl 100 mg PO HS 10/15/16 [History] cloNIDine HCl [CloNIDine HCl] 0.1 mg PO TID 10/15/16 [History] hydrOXYzine pamoate [HydrOXYzine Pamoate] 25 mg PO QID PRN 10/15/16 [History] Allergies/Adverse Reactions: Allergies diazepam [From Valium] Allergy (Verified 10/15/16 16:17) Hives morphine Allergy (Verified 10/15/16 16:17) Hives propoxyphene [From Darvon] Allergy (Verified 10/15/16 16:17) Hives tramadol Allergy (Verified 10/15/16 16:17) Hives - Respiratory Orders Smoking Cessation: Smoking cessation has been advised. For more information, call the [place] Tobacco Quit Line at 9-699-XDJG-NOW. - Advance Directives Code Status: Full Code - Rehabiliation Orders Rehab Potential: Fair - Diet Orders Regular CERTIFICATION: I certify that the transfer of the above named patient to an Extended Care Facility is necessary for the continuing treatment of the diagnosis listed. The above information is true and accurate reflection of patient's current condition. Confidential - Redisclosure prohibited without a patient's written consent.
[2016-10-16] MEDS: (Buprenorphine Hcl/Naloxone Hcl [Suboxone 8 Mg-2 Mg S) SL SCH (22:39)
[2016-10-16] MEDS: traZODone 50 MG TABLET PO SCH (22:44)
[2016-10-16] MEDS: ARIPiprazole 5 MG TABLET PO SCH (22:44)
[2016-10-17] MEDS: *HR* OxyCODONE Immed Rel 5 MG TABLET PO PRN (04:09)
[2016-10-17] MEDS: *HR* LORazepam 1 MG TABLET PO PRN (04:45)
[2016-10-17] MEDS: *HR* Heparin 5,000 UNIT/ML VIAL SQ SCH (04:46)
[2016-10-17 06:56] VITALS: BP 122/55
[2016-10-17] MEDS: Budesonide/Formoterol 160/4.5 MDI IH SCH (07:54)
[2016-10-17] MEDS: Tiotropium 18 MCG inhalation IH SCH (07:54)
[2016-10-17] MEDS: Gabapentin 400 MG CAPSULE PO SCH (08:22)
[2016-10-17] MEDS: cloNIDine HCl 0.1 MG TABLET PO SCH (08:22)
[2016-10-17] MEDS: Folic Acid 1 MG TABLET PO SCH (08:22)
[2016-10-17] MEDS: Aspirin Enteric Coated 81 MG Tablet PO SCH (08:23)
[2016-10-17] MEDS: BuPROPion XL (24 HR) 150 MG TABLET PO SCH (08:23)
[2016-10-17] MEDS: Vitamin B Complex/Vit C/Vit E 1 EACH TABLET PO SCH (08:42)
[2016-10-17] MEDS: Thiamine (B-1) 100 MG TABLET PO SCH (08:42)
[2016-10-17] MEDS: Nicotine 21 MG PATCH.TD24 TD SCH (08:44)
[2016-10-17] MEDS: Saliva Stimulant 100ml BOTTLE MM SCH (08:44)
== END 2016-10-17 09:34 | disposition home or self-care (01) | DRG 897 ==
LOC: EMEROO 16:14 → 3BNU 16:14 → SUATTDRO 21:31
PROVIDERS: ADMIT Registered Nurse; ATTEND Internal Medicine